=== PATIENT | male | born 2000 | race Hispanic/Latino ===

== ENCOUNTER 2023-05-13 10:51 | Emergency (ER) | payer OTHER ==
[~2023-05-13] VITALS: Ht 170.2 cm; Wt 79.4 kg
[2023-05-13] MEDS ORDERED: IBUP-2077 PO (13:41)
[2023-05-13 14:00] VITALS: BP 126/74; PULSE 68; RESP 18; O2SAT 98
== END 2023-05-13 14:25 | disposition home or self-care (01) ==
LOC: EDH 10:51
DX: S39.012A Strain of muscle, fascia and tendon of lower back, initial encounter (principal); X50.0XXA Overexertion from strenuous movement or load, initial encounter; Y93.89 Activity, other specified; Y92.89 Other specified places as the place of occurrence of the external cause; Y99.8 Other external cause status
CPT/HCPCS: 72100